=== PATIENT | female | born 1985 | race Caucasian/White ===

== ENCOUNTER 2020-04-30 16:04 | Emergency (ER) | payer SELFPAY ==
[2020-04-30 16:29] VITALS: BP 162/108; PULSE 81; RESP 16; TEMP 37; O2SAT 99; BMI 36.3
[2020-04-30 16:57] LABS: Basophils % 0.4 %; Eosinophils % 0.4 %; Hematocrit 47.8 % (37.0-47.0); Hemoglobin 15.3 g/dL (11.5-15.3); Lymphocytes # 1.9 10^3/uL (0.8-4.8); Lymphocytes % 16.8 %; Mean Corpuscular Hemoglobin 26.5 pg (28.0-34.0); Mean Corpuscular Volume 82.7 fL (81-99); Mean Platelet Volume 9.2 fL (7.4-10.4); Monocytes # 0.6 10^3/uL (0.2-0.9); Monocytes % 5.2 %; Neutrophils % 76.8 %; Nucleated Red Blood Cells % 0 %; Platelet Count 363 10^3/cmm (130-400); Red Blood Count 5.78 10^6/uL (4.1-5.3); Red Cell Distribution Width 13.7 % (12.1-15.1); White Blood Count 11.1 10^3/uL (4.0-10.0)
[2020-04-30 17:19] LABS: Alanine Aminotransferase 14 U/L (0-33); Albumin Level 4.5 g/dL (3.5-5.2); Alkaline Phosphatase 78 IU/L (35-105); Anion Gap 14.7 (5-19); Aspartate Amino Transferase 14 U/L (0-32); Blood Urea Nitrogen 9 mg/dL (6-20); Calcium 9.8 mg/dL (8.5-10.5); Carbon Dioxide 27 mmol/L (22-29); Chloride 99 mmol/L (98-107); Creatinine Clr Calc Pharmacy 148.8139; Globulin 3.3 g/dL (1.3-4.6); Glomerular Filtration Rate 82.1 mL/min (90-130); Glucose 98 mg/dL (65-115); Osmolality Calculated 283 mOsm/kg (285-295); Potassium 3.7 mmol/L (3.5-5.1); Sodium 137 mmol/L (136-145); Total Bilirubin 0.6 mg/dL (0.15-1.2); Total Protein 7.8 g/dL (6.6-8.7)
[2020-04-30 17:35] LABS: HCG, Serum Qual Negative (Negative)
[2020-04-30 18:03] LABS: Add Urine Microscopic? YES; Bilirubin Urine Neg (Negative); Blood Urine 3+ (Negative); Glucose Urine UA Norm (Normal); Ketones Urine Negative (Negative); Leukocyte Esterase Urine Negative (Negative); Nitrate Urine Negative (Negative); Protein Urine Neg (Negative); Specific Gravity, Urine 1.005 (1.005-1.030); Urine Appearance Clear (CLEAR); Urine Color Other (Yellow); Urobilinogen Urine Norm (Negative); pH Urine 7 (5-7)
[2020-04-30 18:22] LABS: RBC Urine 50-80 /hpf (0-2)
[2020-04-30 18:24] LABS: Add Urine Culture? Yes; Bacteria Urine 2+ /hpf
--- NOTE | 2020-04-30 18:30 | USR_ITS ---
NOTE: Report was unsigned for reason: Order was edited. Original Signature date and time was: 04/30/20 @2031 PROCEDURE INFORMATION: Exam: US Pelvis Complete, Transabdominal and US Pelvis, Transvaginal Exam date and time: 04/30/2020 6:30 PM Age: 34 years old Clinical indication: Other: Bleeding; Prior surgery; Surgery type: D & c; Additional info: Pain, bleeding, irregular periods TECHNIQUE: Imaging protocol: Real-time transabdominal and transvaginal pelvic ultrasound (complete) with image documentation. Transvaginal imaging was used for better evaluation of the endometrium and adnexa. COMPARISON: No relevant prior studies available. FINDINGS: Uterus/cervix: The uterus measures 11.7 x 6.0 x 8.4 cm. Endometrial thickness is 15 mm. The myometrium is inhomogenous with a possible 3.2 cm anterior uterine fibroid. Multiple nabothian cysts in the cervix. Right adnexa: The right ovary was not definitely visualized. Left adnexa: The left ovary measures 3.5 x 2.4 x 2.9 cm with normal Doppler flow and follicles. Intraperitoneal space: No free fluid. Bladder: Normal. [facility] US/US pelvic complete* [id number] IMPRESSION: 1. Endometrial thickness of 15 mm is considered slightly thickened. 2. Nonvisualized right ovary.
[2020-04-30] MEDS: ibuprofen 600 mg Tablet PO (18:38)
[2020-04-30 18:42] VITALS: BP 156/98; PULSE 76; RESP 20; O2SAT 99
--- NOTE | 2020-04-30 19:08 | ED_ITS ---
HPI - Abdominal Pain General: Chief Complaint: Abdominal Pain Stated Complaint: VAGINAL BLEEDING Time Seen by Provider: 04/30/20 18:10 History of Present Illness: HPI narrative: Patient presents with abdominal pain. She is a healthy 34-year-old with a history of endometriosis. She was treated about 10 years ago with surgery and had excellent results but the doctor told her that she should expect to have endometriosis recur within about 5 years. She said she is really done well up until this past year she started having very irregular periods. Her last period was in December. She started bleeding 2 days ago and has significant burning pain throughout her whole abdomen. She is worse on the right side. She has been having very heavy vaginal bleeding as well. She said since her periods have been irregular this is typical for her to have super heavy bleeding. The pain is worse than it has been in the past. She does not have an GROUND SUPPORT AGENT doctor currently. She has had her gallbladder removed and had a . She still has her appendix. MD elicited complaint: abdominal pain and flank pain Onset (ago): day(s) (2) Pain Consistency: constant Location: Diffuse Severity: severe Quality: burning Radiation: none Migration to: no migration Exacerbating factors: nothing Relieving factors: nothing and other (Midol helped a little bit.) Associated Symptoms: Denies chills, fever(s), nausea and vomiting Related Data: Date of Last Menstrual Period: 04/30/20 Review of Systems General: Reports: 10 or more systems reviewed and unremarkable except in HPI and below Const: Denies: fever(s), chills, fatigue or malaise Eyes: Denies: change in vision ENMT: Denies: odynophagia Card: Denies: chest pain or swelling of feet/ankles Resp: Denies: dyspnea, productive cough or non-productive cough GI: Denies: abdominal pain, nausea or vomiting : Reports: flank pain, difficulty voiding, vaginal bleeding and dysmenorrhea Musc: Denies: neck pain or back pain Skin/Breast: Denies: rash Neuro: Denies: headache(s), numbness in extremities or weakness in extremities Jin/Lymph: Denies: easy bruising or easy bleeding [facility] Female Reproductive History: Date of last menstrual period: 04/30/20 Physical Exam Const: COMMON NORMALS: no acute distress, patient oriented x3, no limitations and alert GENERAL APPEARANCE: cooperative and comfortable HENMT: HEAD & SCALP: normal to inspection FACE & SINUS: normal facial exam Eye: GENERAL EYE: appearance normal, both eyes and all related structures Neck/C-Spine: COMMON NORMALS: supple, no meningeal signs and no JVD Chest: COMMONS NORMALS: normal inspection of the chest Resp: COMMON NORMALS: normal respiratory effort, No use of accessory muscles and clear to auscultation bilaterally AUSCULTATION: clear to auscultation bilaterally Cardio: COMMON NORMALS: no JVD, regular rate, regular rhythm and No murmurs present (Cardio) RATE: regular rate RHYTHM: regular rhythm GI: COMMON NORMALS: Normal to inspection, nondistended, normoactive bowel sounds present and Soft to palpation INSPECTION: Yes normal to inspection AUSCULTATION: Yes normoactive bowel sounds PALPATION: Yes Soft to palpation and Yes Tenderness to palpation present (GI) Back/Pelvis: COMMON NORMALS: thoracic and lumbar spine normal to inspection Extremity: COMMON NORMALS: normal to inspection Neuro: COMMON NORMALS: patient oriented x3, moves all extremities, no focal motor deficits and no sensory deficits noted SENSORIUM/ORIENTATION: Yes alert MENINGEAL SIGNS: Yes no meningeal signs Psych: COMMON NORMALS: mental status grossly normal, cooperative and normal affect Skin: COMMON NORMALS: no rashes or lesions noted and turgor normal GENERAL SKIN EXAM: no rashes or lesions noted and turgor normal Course ED course: Ultrasound was fairly unremarkable except for a small fibroid. Blood counts are fine. Vital signs are fine. I have set her up to follow-up with GROUND SUPPORT AGENT for further management of her symptoms. Vital Signs: Vital signs: Vital Signs Temperature 98.6 F 04/30/20 16:29 Pulse Rate 57 L 04/30/20 21:19 Respiratory Rate 18 04/30/20 21:19 Blood Pressure 156/98 04/30/20 18:42 Pulse Oximetry 98 04/30/20 21:19 MDM - Abdominal Pain Lab Data: Labs: Lab Results 04/30/20 04/30/20 04/30/20 Range/Units 16:36 16:50 16:50 WBC 11.1 H (4.0-10.0) 10^3/ uL RBC 5.78 H (4.1-5.3) 10^6/u L Hgb 15.3 (11.5-15.3) g/dL Hct 47.8 H (37.0-47.0) % MCV 82.7 (81-99) fL MCH 26.5 L (28.0-34.0) pg MCHC 32.0 (30.0-36.0) g/dL RDW 13.7 (12.1-15.1) % Plt Count 363 (130-400) 10^3/c mm MPV 9.2 (7.4-10.4) fL Neut % (Auto) 76.8 % Lymph % (Auto) 16.8 % [place] % (Auto) 5.2 % Eos % (Auto) 0.4 % Baso % (Auto) 0.4 % Neut # (Auto) 8.50 H (1.8-7.7) 10^3/u L Lymph # (Auto) 1.9 (0.8-4.8) 10^3/u L [place] # (Auto) 0.6 (0.2-0.9) 10^3/u L Eos # (Auto) 0.0 (0.0-0.8) 10^3/u L Baso # (Auto) 0.0 (0.0-0.1) 10^3/u L Nucleated RBC % (a uto) 0 % Nucleated RBCs # 0.0 /100WBC Sodium 137 (136-145) mmol/L Potassium 3.7 (3.5-5.1) mmol/L Chloride 99 (98-107) mmol/L Carbon Dioxide 27 (22-29) mmol/L Anion Gap 14.7 (5-19) BUN 9 (6-20) mg/dL Creatinine 0.8 (0.5-0.9) mg/dL GFR Calculation 82.1 L (90-130) mL/min Glucose 98 (65-115) mg/dL Calculated Osmolal ity 283 L (285-295) mOsm/k g Calcium 9.8 (8.5-10.5) mg/dL Total Bilirubin 0.6 (0.15-1.2) mg/dL AST 14 (0-32) U/L ALT 14 (0-33) U/L Alkaline Phosphata se 78 (35-105) IU/L Total Protein 7.8 (6.6-8.7) g/dL Albumin 4.5 (3.5-5.2) g/dL Globulin 3.3 (1.3-4.6) g/dL HCG, Qual (Negative) Urine Color Other (Yellow) Urine Appearance Clear (CLEAR) Urine pH 7 (5-7) Ur Specific Gravit y 1.005 (1.005-1.030) Urine Protein Neg (Negative) Urine Glucose (UA) Norm (Normal) Urine Ketones Negative (Negative) Urine Blood 3+ H (Negative) Urine Nitrate Negative (Negative) Urine Bilirubin Neg (Negative) Urine Urobilinogen Norm (Negative) mg/dL Ur Leukocyte Lo ase Negative (Negative) Urine RBC 50-80 H (0-2) /hpf Urine WBC 5-10 H (0-5) /hpf Ur Squamous Epith Cells 5-10 H (0-5) /hpf Amorphous Sediment Not Reportable Urine Bacteria 2+ H (NONE) /hpf Blood Type Rho(D) Type Antibody Screen 04/30/20 04/30/20 Range/Units 16:50 16:50 WBC (4.0-10.0) 10^3/ uL RBC (4.1-5.3) 10^6/u L Hgb (11.5-15.3) g/dL Hct (37.0-47.0) % MCV (81-99) fL MCH (28.0-34.0) pg MCHC (30.0-36.0) g/dL RDW (12.1-15.1) % Plt Count (130-400) 10^3/c mm MPV (7.4-10.4) fL Neut % (Auto) % Lymph % (Auto) % [place] % (Auto) % Eos % (Auto) % Baso % (Auto) % Neut # (Auto) (1.8-7.7) 10^3/u L Lymph # (Auto) (0.8-4.8) 10^3/u L [place] # (Auto) (0.2-0.9) 10^3/u L Eos # (Auto) (0.0-0.8) 10^3/u L Baso # (Auto) (0.0-0.1) 10^3/u L Nucleated RBC % (a uto) % Nucleated RBCs # /100WBC Sodium (136-145) mmol/L Potassium (3.5-5.1) mmol/L Chloride (98-107) mmol/L Carbon Dioxide (22-29) mmol/L Anion Gap (5-19) BUN (6-20) mg/dL Creatinine (0.5-0.9) mg/dL GFR Calculation (90-130) mL/min Glucose (65-115) mg/dL Calculated Osmolal ity (285-295) mOsm/k g Calcium (8.5-10.5) mg/dL Total Bilirubin (0.15-1.2) mg/dL AST (0-32) U/L ALT (0-33) U/L Alkaline Phosphata se (35-105) IU/L Total Protein (6.6-8.7) g/dL Albumin (3.5-5.2) g/dL Globulin (1.3-4.6) g/dL HCG, Qual Negative (Negative) Urine Color (Yellow) Urine Appearance (CLEAR) Urine pH (5-7) Ur Specific Gravit y (1.005-1.030) Urine Protein (Negative) Urine Glucose (UA) (Normal) Urine Ketones (Negative) Urine Blood (Negative) Urine Nitrate (Negative) Urine Bilirubin (Negative) Urine Urobilinogen (Negative) mg/dL Ur Leukocyte Lo ase (Negative) Urine RBC (0-2) /hpf Urine WBC (0-5) /hpf Ur Squamous Epith Cells (0-5) /hpf Amorphous Sediment Urine Bacteria (NONE) /hpf Blood Type O Negative Rho(D) Type Negative Antibody Screen Negative Discharge Plan Discharge Patient Disposition: Home Clinical Impression: Dysmenorrhea Fibroid uterus Qualifiers: Uterine leiomyoma location: unspecified location Qualified Code(s): D25.9 - Leiomyoma of uterus, unspecified Condition: Stable Prescriptions: New tramadol 50 mg tablet 50 mg PO Q6H PRN (Reason: pain) Qty: 10 RF: 0 No Action Multiple Vitamin, Womens Tablet 1 tab PO DAILY RF: 0 Discharge Orders: Discharge Order (Routine); Ordered 04/30/20 Ordered By: Christa Alberto Referrals: Agnieszka Kilgore, MANAGER COSMETIC-C [Family Provider] - Charles Pope MD [Physician] - 7-10 days Discharge Diet: Usual diet Discharge Activity: Resume usual activity Patient Instructions: Abdominal Pain (ED) Activity Restrictions/Additional Instructions: Return to the emergency department if new or worse symptoms including increased pain, bleeding, fever. Discharge Date/Time: 04/30/20 21:23 Coding Level of Care Code ED Electronic Publications Specialist for Ryan Fwchristophe Exam Comprehensive
--- NOTE | 2020-04-30 19:16 | PC.NURSE ---
received report from quinton francois assumed care.
[2020-04-30 21:19] VITALS: PULSE 57; RESP 18; O2SAT 98
== END 2020-04-30 21:23 | disposition home or self-care (01) ==
PROVIDERS: Nurse Practitioner Family; Emergency Provider Emergency Medicine; Family Provider Nurse Practitioner
DX: D25.9 Leiomyoma of uterus, unspecified (principal); N94.6 Dysmenorrhea, unspecified
CPT/HCPCS: 12345; 36415; 76830; 76856; 80053; 81001; 84703; 85025; 86850; 86900; 87086; 99282

== ENCOUNTER 2020-10-16 21:44 | Emergency (ER) | payer BC, SELFPAY ==
[2020-10-16 21:47] VITALS: BP 171/111; PULSE 87; RESP 14; TEMP 37.1; O2SAT 98; BMI 37.5
--- NOTE | 2020-10-16 21:53 | ED_ITS ---
HPI - Ear Problem General: Chief complaint: Ear Stated complaint: L EAR PAIN Time Seen by Provider: 10/16/20 21:45 Source: patient Mode of arrival: ambulatory Limitations: no limitations History of Present Illness: HPI Narrative: 35-year-old female patient presents to the emergency department with 1 day onset of left ear pain. She reports pain is so severe tonight she can hardly stand it. She reports swelling to the left ear, denies trauma, she does report hearing loss. She denies fever chills, nausea vomiting. MD Complaint: ear pain and decreased hearing Location: left ear Duration: constant Severity: moderate Relieving factors: other (Tylenol) Exacerbating factors: chewing Discharge from ear: no Associated symptoms: Reports ear or mastoid pain and external ear pain; Denies fever(s), headache(s) or neck pain Review of Systems General: Reports: 10 or more systems reviewed and unremarkable except in HPI and below Const: Denies: fever(s), chills or diaphoresis Eyes: Denies: blurry vision or eye redness ENMT: Reports: ear or mastoid pain and change in hearing; Denies: throat pain, dental pain, disequilibrium, nasal discharge, nasal congestion or post nasal drip Card: Denies: chest pain, palpitations or irregular heart rhythm Resp: Denies: dyspnea, productive cough, non-productive cough or wheezing GI: Denies: abdominal pain, nausea or vomiting : Denies: difficulty voiding or dysuria Musc: Denies: neck pain, back pain, joint pain or joint warmth Skin/Breast: Denies: rash or pruritus Neuro: Denies: headache(s), weakness in extremities or behavioral changes Psych: Denies: anxiety or depression Jin/Lymph: Denies: easy bruising PFSH ED PFSH: Medical History (Updated 10/16/20 @ 22:10 by DYLLAN Rogers) Endometriosis Diagnosed in 2009 by laparoscopy for pelvic pain by Dr. Chamberlain-patient was noted to have a right ovarian endometrioma at this time. No pertinent past medical history Denies diabetes, asthma, seizures, hypertension, DVT/PE PCP: None Surgical History S/P laparoscopic cholecystectomy Performed when she was 17 years old Status post delivery Performed in 2011 [place] nonreassuring heart [place] [facility] [place] post conization of cervix Patient had a LEEP procedure for abnormal Pap smear by Dr. Chamberlain --paper chart has been requested. Patient does not remember any details of this. Status post laparoscopy 01/24/2010---laparoscopic right ovarian cystectomy and removal of fallopian tube cyst on the left side [place] [facility] [place] Surgery was performed for pelvic pain and at the time of surgery patient was noted to have right ovarian endometrioma with minimal adhesions. No other areas of endometriosis identified. Status post tonsillectomy and adenoidectomy At the age of 19 Status post tubal ligation 2011--per[place] at time of [place] [facility] [place] Family History Family/Other Breast cancer maternal aunt, diagnosed in her late 30s or early 40s Denies family history of Colon cancer Diabetes Heart disease Hyperlipidemia Hypertension Thyroid condition Stroke Female Reproductive History: Date of last menstrual period: 04/30/20 Physical Exam Const: COMMON NORMALS: no acute distress, patient oriented x3, healthy appearing and alert GENERAL APPEARANCE: cooperative, comfortable and well hydrated HENMT: COMMON NORMALS: normocephalic, atraumatic, external ears normal, TM's normal bilaterally, Normal external nose present and moist oral mucous membranes HEAD & SCALP: normal to inspection, normocephalic and atraumatic FACE & SINUS: normal facial exam and face symmetric NOSE: Normal external nose present and No nasal polyps present EXTERNAL EAR: Yes external ears normal, Yes mastoids normal and Yes no periauricular adenopathy EXTERNAL AUDITORY CANAL: Abnormal EAC present EAC laterality: left Details: edema and EAC tenderness TYMPANIC MEMBRANE: TM's normal bilaterally MOUTH: Normal oral and palatal mucosa present, lip normal and tongue normal THROAT: posterior oropharynx normal and uvula midline Eye: COMMON NORMALS: Equal, round and reactive pupils present and EOMs intact bilaterally GENERAL EYE: appearance normal, both eyes and all related structures PUPIL: Yes Equal, round and reactive pupils present Neck/C-Spine: COMMON NORMALS: full ROM and no lymphadenopathy GENERAL: Yes normal visual inspection and Yes trachea midline CERVICAL SPINE: Yes cervical ROM normal Lymph: LYMPHATIC: no lymphadenopathy noted Chest: COMMONS NORMALS: normal inspection of the chest and normal palpation of entire chest wall Resp: COMMON NORMALS: normal respiratory effort, No retractions, No use of accessory muscles and clear to auscultation bilaterally EFFORT & INSPECTION: Yes able to speak in complete sentences AUSCULTATION: clear to auscultation bilaterally Cardio: COMMON NORMALS: regular rate, regular rhythm, S1 normal heart sound present, S2 normal heart sound present and Peripheral pulses 2+ throughout RATE: regular rate RHYTHM: regular rhythm HEART SOUNDS: S1 normal heart sound present and S2 normal heart sound present PERIPHERAL PULSES: Peripheral pulses 2+ throughout GI: COMMON NORMALS: Normal to inspection, nondistended, normoactive bowel sounds present, Soft to palpation and non-tender INSPECTION: Yes normal to inspection PALPATION: Yes Soft to palpation : COMMON NORMALS: Yes no CVA tenderness BLADDER/KIDNEY EXAM: Yes no CVA tenderness Back/Pelvis: COMMON NORMALS: no CVA tenderness and thoracic and lumbar spine normal to inspection Extremity: COMMON NORMALS: normal to inspection and capillary refill normal Neuro: COMMON NORMALS: patient oriented x3 and no focal motor deficits S ENSORIUM/ORIENTATION: Yes alert Psych: COMMON NORMALS: mental status grossly normal, Normal thought process pr esent and cooperative ACTIVITY/MOTOR BEHAVIOR: Yes appropriate eye contact THOUGHT PROCESS: Normal thought process present Skin: COMMON NORMALS: no rashes or lesions noted and turgor normal GENERAL SKIN EXAM: no rashes or lesions noted and turgor normal Course Vital Signs: Vital signs: Vital Signs Temperature 98.7 F 10/16/20 21:47 Pulse Rate 81 10/16/20 22:33 Respiratory Rate 17 10/16/20 22:33 Blood Pressure 139/96 10/16/20 22:33 Pulse Oximetry 100 10/16/20 22:33 Discharge Plan Discharge Patient Disposition: Home Clinical Impression: Otalgia of left ear Otitis externa Qualifiers: Otitis externa type: unspecified type Chronicity: acute Laterality: left Qualified Code(s): H60.502 - Unspecified acute noninfective otitis externa, left ear Condition: Stable Prescriptions: New IBU 600 mg tablet 600 mg PO TID PRN (Reason: pain) Qty: 20 RF: 0 No Action Multiple Vitamin, Womens Tablet 1 tab PO DAILY RF: 0 tramadol 50 mg tablet 50 mg PO Q6H PRN (Reason: pain) Qty: 10 RF: 0 Discharge Orders: Discharge ED (Routine); Ordered 10/16/20 Ordered By: Gladys Leach Referrals: Agnieszka Kilgore, BELT BACK OPERATOR-C [Primary Care Provider] - Discharge Diet: Usual diet Discharge Activity: Resume usual activity Patient Instructions: Otitis Externa (ED), Earache (ED), Opioid Safety Activity Restrictions/Additional Instructions: Warm moist compresses to the left ear several times daily as needed for pain Continue Tylenol as needed for pain, you can take 2 extra strength Tylenol 3 times daily, do not exceed this dose Take ibuprofen as prescribed, take with food to avoid stomach upset Continue with eardrops as prescribed, 4 drops to the left ear 4 times daily, lay on right side 120 seconds to ensure instillation absorbs into the skin Follow-up with your primary care in 2 to 3 days if not improved or return to the emergency room if worsening symptoms such as fever or other concerning symptoms. Stand Alone Forms: Work/School Release Coding Level of Care Code ED Orientor for Ryan Fwd Exam Comprehensive
[2020-10-16] MEDS: ibuprofen 600 mg Tablet PO (22:02)
[2020-10-16] MEDS: HYDROcodone-acetaminophen 5-325 mg Tablet 1 TAB PO (22:12)
[2020-10-16 22:33] VITALS: BP 139/96; PULSE 81; RESP 17; O2SAT 100
== END 2020-10-16 22:39 | disposition home or self-care (01) ==
PROVIDERS: Emergency Provider Nurse Practitioner Family; PCP Nurse Practitioner
DX: H60.502 Unspecified acute noninfective otitis externa, left ear (principal)
CPT/HCPCS: 99283

== ENCOUNTER 2022-10-08 03:13 | Emergency (ER) | payer SELFPAY ==
[2022-10-08 03:22] VITALS: BP 175/116; PULSE 83; RESP 20; TEMP 36.4; O2SAT 98; BMI 40.2
--- NOTE | 2022-10-08 03:25 | W.ED.ABDPA2 ---
HPI - Abdominal Pain General: Chief Complaint: Abdominal Pain Stated Complaint: abdomen pain Time Seen by Provider: 10/08/22 03:20 Source: patient Mode of arrival: ambulatory Limitations: no limitations History of Present Illness: 37-year-old female states has been having abdominal pain over the last day states she is got pain all over she states has been a cramping pain with nausea and some slight diarrhea. She states that she cannot localize the pain anywhere but it is severe in nature she rates it an 8 out of 10 she denies any chest pain she denies any worsening proving factors denies any fever denies any dysuria. Associated Symptoms: Denies chills, dysuria and fever(s) Review of Systems Const: Denies: fever(s), chills, body aches or change in appetite Eyes: Denies: blurry vision or eye discomfort ENMT: Denies: throat pain or dental pain Card: Denies: chest pain Resp: Denies: dyspnea GI: Reports: abdominal pain : Denies: dysuria Musc: Denies: neck pain or back pain Skin/Breast: Denies: rash Neuro: Denies: headache(s) Psych: Denies: depression Jin/Lymph: Denies: easy bruising All/Imm: Denies: urticaria PFSH ED PFSH: Medical History BMI 40.0-44.9, adult Endometriosis Diagnosed in 2009 by laparoscopy for pelvic pain by Dr. Chamberlain-patient was noted to have a right ovarian endometrioma at this time. Essential hypertension Hyperlipidemia, mixed No pertinent past medical history Denies diabetes, asthma, seizures, hypertension, DVT/PE PCP: None Surgical History S/P laparoscopic cholecystectomy Performed when she was 17 years old Status post delivery Performed in 2011 for nonreassuring heart tracing by Dr. Donnelly at [facility] Status post conization of cervix Patient had a LEEP procedure for abnormal Pap smear by Dr. Chamberlain --paper chart has been requested. Patient does not remember any details of this. Status post laparoscopy 01/24/2010---laparoscopic right ovarian cystectomy and removal of fallopian tube cyst on the left side performed by Dr. Chamberlain at [facility]. Surgery was performed for pelvic pain and at the time of surgery patient was noted to have right ovarian endometrioma with minimal adhesions. No other areas of endometriosis identified. Status post tonsillectomy and adenoidectomy At the age of 19 Status post tubal ligation 2011--performed at time of by Dr. Donnelly at [facility] Family History Family/Other Breast cancer maternal aunt, diagnosed in her late 30s or early 40s Denies family history of Colon cancer Diabetes Heart disease Hyperlipidemia Hypertension Thyroid condition Stroke Social History Smoking and tobacco status: current every day smoker Second hand smoke exposure: No Smoking risk assessment/counseling performed?: Yes Alcohol intake: never Desire information about alcohol rehabilitation?: No Counseling given: No Desire information about substance/drug rehabilitation?: No Counseling given: No Adopted: Yes Caregiver/support person: No Lives independently: Yes Household members: spouse and children Housing: House Marital status: Number of children: 2 service: No Current occupational status: unemployed Current occupational exposures/hazards: No Pets and animals: Yes Current gender identity: Female Physical Exam Const: COMMON NORMALS: no acute distress, patient oriented x3 and healthy appearing HENMT: COMMON NORMALS: normocephalic and atraumatic HEAD & SCALP: normocephalic and atraumatic Eye: COMMON NORMALS: Equal, round and reactive pupils present and EOMs intact bilaterally PUPIL: Yes Equal, round and reactive pupils present Neck/C-Spine: COMMON NORMALS: full ROM and supple Chest: COMMONS NORMALS: normal inspection of the chest and normal palpation of entire chest wall Resp: COMMON NORMALS: normal respiratory effort, No retractions, No use of accessory muscles and clear to auscultation bilaterally AUSCULTATION: clear to auscultation bilaterally Cardio: COMMON NORMALS: regular rate, regular rhythm and No murmurs present (Cardio) RATE: regular rate RHYTHM: regular rhythm GI: COMMON NORMALS: Normal to inspection, nondistended, normoactive bowel sounds present, Soft to palpation, non-tender and no masses PALPATION: Yes Soft to palpation Extremity: COMMON NORMALS: normal to inspection and full ROM Neuro: COMMON NORMALS: patient oriented x3, moves all extremities and no focal motor deficits Psych: COMMON NORMALS: mental status grossly normal, Normal thought process present and cooperative THOUGHT PROCESS: Normal thought process present Skin: COMMON NORMALS: no rashes or lesions noted and no wounds GENERAL SKIN EXAM: no rashes or lesions noted Course Vital Signs: Vital signs: Vital Signs Temperature 97.6 F 10/08/22 03:22 Pulse Rate 72 10/08/22 04:19 Respiratory Rate 18 10/08/22 04:19 Blood Pressure 144/81 10/08/22 04:19 Pulse Oximetry 98 10/08/22 04:20 Oxygen Delivery Me thod 10/08/22 04:20 MDM - Abdominal Pain Medical Decision Making Patient presents here with abdominal pain she does have a history of ovarian cyst she does have an ovarian cyst here no signs of torsion her pain is improved lab work is normal she is stable for discharge we will prescribe her pain meds she is to follow-up with her PCP in 3 to 5 days return if worsening she understands and agrees to plan. Lab Data 10/08/22 03:20 10/08/22 03:20 Labs/Radiology: Radiology Impressions Abdomen/Pelvis CT 10/08/22 03:37 IMPRESSION: 1. Hypoattenuation cystic mass seen within the left ovary measuring up to 2.8 cm compatible with a benign or functional ovarian cyst. A 2.4 cm hypoattenuation cystic mass seen within the right ovary exhibiting mild peripheral enhancement compatible with a hemorrhagic cyst. No further workup is needed. 2. Multiple hypoattenuation cystic masses are seen within the cervix compatible with multiple nabothian cysts. This finding correlates with the sonographic findings dated 04/30/2020. 3. Normal appendix 4. No evidence for ureteral obstruction Laboratory Results WBC 11.8 10^3/uL (4.0-10.0) H 10/08/22 03:20 RBC 5.83 10^6/uL (4.1-5.3) H 10/08/22 03:20 Hgb 15.2 g/dL (11.5-15.3) 10/08/22 03:20 Hct 48.9 % (37.0-47.0) H 10/08/22 03:20 MCV 83.9 fl (81-99) 10/08/22 03:20 MCH 26.1 pg (28.0-34.0) L 10/08/22 03:20 MCHC 31.1 g/dL (30.0-36.0) 10/08/22 03:20 RDW 13.3 % (12.1-15.1) 10/08/22 03:20 Plt Count 405 10^3/cmm (130-400) H 10/08/22 03:20 MPV 8.9 fL (7.4-10.4) 10/08/22 03:20 Neut % (Auto) 69.7 % 10/08/22 03:20 Lymph % (Auto) 22.2 % 10/08/22 03:20 [place] % (Auto) 6.0 % 10/08/22 03:20 Eos % (Auto) 0.8 % 10/08/22 03:20 Baso % (Auto) 0.6 % 10/08/22 03:20 Neut # (Auto) 8.23 10^3/uL (1.8-7.7) H 10/08/22 03:20 Lymph # (Auto) 2.6 10^3/uL (0.8-4.8) 10/08/22 03:20 [place] # (Auto) 0.7 10^3/uL (0.2-0.9) 10/08/22 03:20 Eos # (Auto) 0.1 10^3/uL (0.0-0.8) 10/08/22 03:20 Baso # (Auto) 0.1 10^3/uL (0.0-0.1) 10/08/22 03:20 Nucleated RBC % (auto) 0 % 10/08/22 03:20 Nucleated RBCs # 0.0 /100WBC 10/08/22 03:20 Sodium 138 mmol/L (136-145) 10/08/22 03:20 Potassium 3.9 mmol/L (3.5-5.1) 10/08/22 03:20 Chloride 101 mmol/L (98-107) 10/08/22 03:20 Carbon Dioxide 26 mmol/L (22-29) 10/08/22 03:20 Anion Gap 14.9 (5-19) 10/08/22 03:20 BUN 11 mg/dL (6-20) 10/08/22 03:20 Creatinine 0.8 mg/dL (0.5-0.9) 10/08/22 03:20 GFR Calculation 80.7 mL/min (90-130) L 10/08/22 03:20 Glucose 106 mg/dL (65-115) 10/08/22 03:20 Calculated Osmolality 286 mOsm/kg (285-295) 10/08/22 03:20 Calcium 9.7 mg/dL (8.5-10.5) 10/08/22 03:20 Total Bilirubin 0.4 mg/dL (0.15-1.2) 10/08/22 03:20 AST 17 U/L (0-32) 10/08/22 03:20 ALT 16 U/L (0-33) 10/08/22 03:20 Alkaline Phosphatase 92 U/L (35-105) 10/08/22 03:20 Total Protein 7.3 g/dL (6.6-8.7) 10/08/22 03:20 Albumin 3.8 g/dL (3.5-5.2) 10/08/22 03:20 Globulin 3.5 g/dL (1.3-4.6) 10/08/22 03:20 Lipase 39 U/L (13-60) 10/08/22 03:20 HCG, Qual Negative (Negative) 10/08/22 03:20 Urine Color Yellow (Yellow) 10/08/22 04:46 Urine Appearance Clear (CLEAR) 10/08/22 04:46 Urine pH 5 (5-7) 10/08/22 04:46 Ur Specific [place] 1.020 (1.005-1.030) 10/08/22 04:46 Urine Protein Trace (Negative) 10/08/22 04:46 Urine Glucose (UA) Norm (Normal) 10/08/22 04:46 Urine Ketones Negative (Negative) 10/08/22 04:46 Urine Blood 2+ (Negative) H 10/08/22 04:46 Urine Nitrate Negative (Negative) 10/08/22 04:46 Urine Bilirubin Neg (Negative) 10/08/22 04:46 Urine Urobilinogen Norm mg/dL (Negative) 10/08/22 04:46 Ur Leukocyte Esterase 1+ (Negative) H 10/08/22 04:46 Urine RBC 0-4 /hpf (0-2) H 10/08/22 04:46 Urine WBC 0-4 /hpf (0-5) H 10/08/22 04:46 Ur Squamous Epith Cells 0-4 /hpf (0-5) H 10/08/22 04:46 Ur Transition Epith Cell 0-4 /hpf 10/08/22 04:46 Amorphous Sediment Not Reportable 10/08/22 04:46 Urine Bacteria 1+ /hpf (NONE) H 10/08/22 04:46 Discharge Plan Discharge Patient Disposition: Home Clinical Impression: Abdominal pain Condition: Stable Prescriptions: New hydrocodone-acetaminophen 5-325 mg tablet 1 tab PO Q6H PRN (Reason: pain) Qty: 14 0RF ondansetron 4 mg tablet,disintegrating 4 mg PO Q6H PRN (Reason: nausea and vomiting) Qty: 14 0RF No Action Metamucil 3.4 gram/5.4 gram powder 1 tbsp PO BID Qty: 660 0RF Rx Instructions: mix into at least 8 oz of water or juice before administering lisinopril 40 mg tablet 40 mg PO DAILY Qty: 30 5RF atorvastatin 20 mg tablet 20 mg PO DAILY Qty: 30 5RF Multiple Vitamin, Womens Tablet 1 tab PO DAILY IBU 600 mg tablet 600 mg PO TID PRN (Reason: pain) Qty: 20 0RF Rx Instructions: take 1 PO TID PRN pain - take with food to avoid stomach upset Discharge Orders: Discharge ED (Routine); Ordered 10/08/22 Ordered By: Rosemarie Washington Referrals: Melanie Beth FNP-C [Primary Care Provider] - 1-3 days Discharge Diet: Advance as tolerated Discharge Activity: Resume usual activity Patient Instructions: Abdominal Pain (ED), Opioid Safety Coding Level of Care Code ED Warehouse Stocker for Ryan Drummond
[2022-10-08 03:27] LABS: Basophils # 0.1 10^3/uL (0.0-0.1); Basophils % 0.6 %; Eosinophils # 0.1 10^3/uL (0.0-0.8); Eosinophils % 0.8 %; Hematocrit 48.9 % (37.0-47.0); Hemoglobin 15.2 g/dL (11.5-15.3); Lymphocytes # 2.6 10^3/uL (0.8-4.8); Lymphocytes % 22.2 %; Mean Corpuscular HGB Conc 31.1 g/dL (30.0-36.0); Mean Corpuscular Hemoglobin 26.1 pg (28.0-34.0); Mean Corpuscular Volume 83.9 fl (81-99); Mean Platelet Volume 8.9 fL (7.4-10.4); Monocytes # 0.7 10^3/uL (0.2-0.9); Neutrophils # 8.23 10^3/uL (1.8-7.7); Neutrophils % 69.7 %; Nucleated Red Blood Cells % 0 %; Platelet Count 405 10^3/cmm (130-400); Red Blood Count 5.83 10^6/uL (4.1-5.3); Red Cell Distribution Width 13.3 % (12.1-15.1); White Blood Count 11.8 10^3/uL (4.0-10.0)
[2022-10-08] MEDS: sodium chloride 0.9% 1,000 ML 999 ML IV (03:28)
[2022-10-08] MEDS: ondansetron 2 mg/ML SDV 2 mL 4 MG IVP (03:28)
[2022-10-08 03:29] VITALS: RESP 18; O2SAT 98
[2022-10-08] MEDS: HYDROmorphone 1 mg/mL INJ 1 mL IVP (03:29)
--- NOTE | 2022-10-08 03:37 | CTR_ITS ---
PROCEDURE INFORMATION: Exam: CT Abdomen And Pelvis With Contrast Exam date and time: 10/08/2022 3:55 AM Age: 37 years old Clinical indication: Abdominal pain; Generalized; Prior surgery; Surgery type: Gb. Leep. Csection. Tubal. Patient HX: C/O diffuse abd pain with nausea and diarrhea. TECHNIQUE: Imaging protocol: Computed tomography of the abdomen and pelvis with contrast. Radiation optimization: All CT scans at this facility use at least one of these dose optimization techniques: automated exposure control; mA and/or kV adjustment per patient size (includes targeted exams where dose is matched to clinical indication); or iterative reconstruction. Contrast material: OMNI 350; Contrast volume: 100 ml; Contrast route: INTRAVENOUS (IV); REPORTING DATA: Count of CT and Cardiac NM exams in prior 12 months: This patient has received 0 known CTs and 0 known cardiac nuclear medicine studies in the 12 months prior to the current study. COMPARISON: US pelv w/transvag [id number] 04/30/2020 7:40 PM RADIATION DOSE METRICS: Total DLP (mGy-cm): 1356.93 FINDINGS: Liver: Normal. No mass. Gallbladder and bile ducts: Status post cholecystectomy. Pancreas: Normal. No ductal dilation. Spleen: Normal. No splenomegaly. Adrenal glands: Normal. No mass. Kidneys and ureters: Normal. No hydronephrosis. Stomach and bowel: Unremarkable. No obstruction. No mucosal thickening. Appendix: The appendix is visualized and is normal in configuration. Intraperitoneal space: Unremarkable. No free air. No significant fluid collection. Vasculature: Unremarkable. No abdominal aortic aneurysm. Lymph nodes: Unremarkable. No enlarged lymph nodes. Urinary bladder: Unremarkable as visualized. Reproductive: There are multiple hypoattenuation cystic mass seen within the uterine cervix compatible with multiple nabothian cysts. This finding correlates with the sonographic findings dated 04/30/2020. There is a 2.8 x 2.8 x 2.5 cm hypoattenuation cystic mass seen associated with the left ovary compatible with a benign or functional cyst. There is a mildly irregular hypoattenuation cystic mass seen associated with the right ovary exhibiting some mild peripheral enhancement measuring 1.7 x 2.4 x 2.1 cm likely representing a benign hemorrhagic cyst. Bones/joints: Unremarkable. No acute fracture. Soft tissues: Unremarkable. CT/CT abdomen pelvis w con* [id number] IMPRESSION: 1. Hypoattenuation cystic mass seen within the left ovary measuring up to 2.8 cm compatible with a benign or functional ovarian cyst. A 2.4 cm hypoattenuation cystic mass seen within the right ovary exhibiting mild peripheral enhancement compatible with a hemorrhagic cyst. No further workup is needed. 2. Multiple hypoattenuation cystic masses are seen within the cervix compatible with multiple nabothian cysts. This finding correlates with the sonographic findings dated 04/30/2020. 3. Normal appendix 4. No evidence for ureteral obstruction
[2022-10-08 03:43] LABS: HCG, Serum Qual Negative (Negative)
[2022-10-08 03:44] LABS: Alanine Aminotransferase 16 U/L (0-33); Albumin Level 3.8 g/dL (3.5-5.2); Alkaline Phosphatase 92 U/L (35-105); Anion Gap 14.9 (5-19); Aspartate Amino Transferase 17 U/L (0-32); Blood Urea Nitrogen 11 mg/dL (6-20); Calcium 9.7 mg/dL (8.5-10.5); Carbon Dioxide 26 mmol/L (22-29); Chloride 101 mmol/L (98-107); Globulin 3.5 g/dL (1.3-4.6); Glomerular Filtration Rate 80.7 mL/min (90-130); Glucose 106 mg/dL (65-115); Lipase 39 U/L (13-60); Osmolality Calculated 286 mOsm/kg (285-295); Potassium 3.9 mmol/L (3.5-5.1); Sodium 138 mmol/L (136-145); Total Bilirubin 0.4 mg/dL (0.15-1.2); Total Protein 7.3 g/dL (6.6-8.7)
[2022-10-08] MEDS: iohexol 350 mg/mL 500 mL Btl (per mL) IV (03:58)
[2022-10-08 04:19] VITALS: BP 144/81; PULSE 72; RESP 18; O2SAT 98
[2022-10-08 04:20] VITALS: O2SAT 98
[2022-10-08 04:54] LABS: Add Urine Microscopic? YES; Bilirubin Urine Neg (Negative); Blood Urine 2+ (Negative); Glucose Urine UA Norm (Normal); Ketones Urine Negative (Negative); Leukocyte Esterase Urine 1+ (Negative); Nitrate Urine Negative (Negative); Protein Urine Trace (Negative); Urine Appearance Clear (CLEAR); Urine Color Yellow (Yellow); Urobilinogen Urine Norm (Negative); pH Urine 5 (5-7)
[2022-10-08 04:56] LABS: RBC Urine 0-4 /hpf (0-2); Squamous Epithelial Cell Urine 0-4 /hpf (0-5); Transitional Epi Cells Urine 0-4 /hpf; WBC Urine 0-4 /hpf (0-5)
[2022-10-08 04:57] LABS: Bacteria Urine 1+ /hpf
[2022-10-08 05:05] VITALS: BP 133/79; PULSE 76; RESP 16; O2SAT 95
--- NOTE | 2022-10-09 08:01 | DCPLANNER ---
Addendum entered by Velia Echevarria 10/15/22 07:12: Patient had an appointment scheduled with [facility] on 10.12.22 - patient did attend appointment. Original Note: web project manager had message to schedule a follow up appointment for patient with [facility]. web project manager sent patients information to the front office staff at [facility]. Patients information will be printed and reviewed. clinic will call patient with appointment information.
== END 2022-10-08 05:05 | disposition home or self-care (01) ==
PROVIDERS: Emergency Provider Emergency Medicine; PCP Nurse Practitioner Family
DX: R10.9 Unspecified abdominal pain (principal)
CPT/HCPCS: 74177; 80053; 81001; 83690; 84703; 85025; 96361; 96374; 96375; 99285; J1170; J2405; J7030; Q9967

== ENCOUNTER → 2022-11-10 10:01 | Outpatient (BNVA) | payer OTHER, SELFPAY | PROVIDERS: PCP Nurse Practitioner Family; Visit Provider Obstetrics & Gynecology | DX: R10.2 Pelvic and perineal pain (principal); N92.0 Excessive and frequent menstruation with regular cycle; N85.2 Hypertrophy of uterus | CPT/HCPCS: 76830 ==

== ENCOUNTER 2023-02-16 06:06 | Emergency (ER) | payer SELFPAY ==
[2023-02-16 06:09] VITALS: BMI 39.5
[2023-02-16 06:11] VITALS: BP 175/135; PULSE 87; RESP 16; TEMP 37.2; O2SAT 98
--- NOTE | 2023-02-16 06:15 | W.ED.BACK ---
HPI - Back Pain/Injury General: Chief Complaint: Back Pain/Injury Stated Complaint: Lower back pain Time Seen by Provider: 02/16/23 06:10 Source: patient Mode of arrival: ambulatory History of Present Illness: 37-year-old female presents emergency room complaining of back pain that began 4 days ago. She does remember anything she did that seem to trigger it she has not had significant back problems in the past she has pain in the low back she describes as radiating up into her right flank. She denies dysuria. No hematuria no history of renal stones. No radiation of pain into her lower extremities and no weakness in her legs. MD elicited complaint: back pain Onset (ago): day(s) (4) Timing: constant Severity: moderate Quality: sharp Location: lumbar spine Radiation: other (Right flank) Exacerbating factors: movement, sitting upright and walking Relieving factors: supine Associated symptoms: Reports syncope; Deny abdominal pain, arthralgias, chills, difficulty walking, dysuria, fatigue, fever(s), hematuria, myalgias, nausea, numbness, tingling/numbness/burning, urinary frequency, urinary urgency, vomiting or weakness Work related injury: No Review of Systems Const: Denies: fever(s), chills, fatigue or malaise Card: Reports: syncope; Denies: chest pain Resp: Denies: dyspnea, productive cough or non-productive cough GI: Denies: abdominal pain, nausea or vomiting : Reports: flank pain; Denies: dysuria, urinary frequency, urinary urgency or hematuria Musc: Reports: back pain; Denies: extremity pain Skin/Breast: Denies: rash or pruritus Neuro: Denies: difficulty walking [facility] PFSH: Medical History BMI 40.0-44.9, adult Endometriosis Diagnosed in 2009 by laparoscopy for pelvic pain by Dr. Chamberlain-patient was noted to have a right ovarian endometrioma at this time. Essential hypertension Hyperlipidemia, mixed No pertinent past medical history Denies diabetes, asthma, seizures, hypertension, DVT/PE PCP: None Surgical History S/P laparoscopic cholecystectomy Performed when she was 17 years old Status post delivery Performed in 2011 for nonreassuring heart tracing by Dr. Donnelly at [facility] Status post conization of cervix Patient had a LEEP procedure for abnormal Pap smear by Dr. Chamberlain --paper chart has been requested. Patient does not remember any details of this. Status post laparoscopy 01/24/2010---laparoscopic right ovarian cystectomy and removal of fallopian tube cyst on the left side performed by Dr. Chamberlain at [facility]. Surgery was performed for pelvic pain and at the time of surgery patient was noted to have right ovarian endometrioma with minimal adhesions. No other areas of endometriosis identified. Status post tonsillectomy and adenoidectomy At the age of 19 Status post tubal ligation 2011--performed at time of by Dr. Donnelly at [facility] Family History Family/Other Breast cancer maternal aunt, diagnosed in her late 30s or early 40s Denies family history of Colon cancer Diabetes Heart disease Hyperlipidemia Hypertension Thyroid condition Stroke Social History Substance/Drug Use: unknown Do you think of yourself as: Straight/Heterosexual Physical Exam Const: COMMON NORMALS: no acute distress GENERAL APPEARANCE: cooperative and comfortable ORIENTATION/CONSCIOUSNESS: Yes awake, Yes oriented to person, Yes oriented to place and Yes oriented to time HENMT: COMMON NORMALS: normocephalic, atraumatic and hearing grossly normal bilaterally HEAD & SCALP: normocephalic and atraumatic Resp: COMMON NORMALS: normal respiratory effort, No retractions, No use of accessory muscles and clear to auscultation bilaterally AUSCULTATION: clear to auscultation bilaterally Cardio: COMMON NORMALS: regular rate, regular rhythm and No murmurs present (Cardio) RATE: regular rate RHYTHM: regular rhythm GI: COMMON NORMALS: Soft to palpation and No hepatosplenomegaly present AUSCULTATION: Yes normoactive bowel sounds PALPATION: Yes Soft to palpation, No Tenderness to palpation present (GI), No Guarding due to palpation present (GI) and Yes No hepatosplenomegaly present Extremity: COMMON NORMALS: normal to inspection, capillary refill normal, no clubbing, cyanosis or edema, no calf tenderness and no pedal edema Neuro: SENSORIUM/ORIENTATION: Yes oriented to person, Yes oriented to place and Yes oriented to time OTHER: Straight leg raising is negative. Dorsal plantarflexion strength is 5/5 EHL 5 of 5 bilaterally. Sensation lower extremities normal. Deep tendon reflexes plus 1 out of 4 at the patellar tendon bilaterally. Skin: COMMON NORMALS: no rashes or lesions noted GENERAL SKIN EXAM: no rashes or lesions noted Course Vital Signs: Vital signs: Vital Signs Temperature 98.9 F 02/16/23 06:11 Pulse Rate 87 02/16/23 06:11 Respiratory Rate 16 02/16/23 06:11 Blood Pressure 175/135 02/16/23 06:11 Pulse Oximetry 98 02/16/23 06:11 Oxygen Delivery Me thod Room Air 02/16/23 06:11 MDM - Back Pain/Injury Medical Decision Making Few red blood cells on urine. Patient does report pain radiating up into her flank however. Prescribed a 7-day course of Bactrim also prescribed tizanidine and diclofenac follow-up with her primary care doctor. Back pain is improved with medications given in the emergency room. Medical Records I reviewed the patient's medical records. Labs I reviewed the patient's lab results. Laboratory Results Urine Color Yellow (Yellow) 02/16/23 06:25 Urine Appearance Hazy (CLEAR) A 02/16/23 06:25 Urine pH 5 (5-7) 02/16/23 06:25 Ur Specific [place] 1.020 (1.005-1.030) 02/16/23 06:25 Urine Protein Neg (Negative) 02/16/23 06:25 Urine Glucose (UA) Norm (Normal) 02/16/23 06:25 Urine Ketones Negative (Negative) 02/16/23 06:25 Urine Blood Neg (Negative) 02/16/23 06:25 Urine Nitrate Negative (Negative) 02/16/23 06:25 Urine Bilirubin Neg (Negative) 02/16/23 06:25 Urine Urobilinogen 1 mg/dL (Negative) H 02/16/23 06:25 Ur Leukocyte Esterase 1+ (Negative) H 02/16/23 06:25 Urine RBC 0-4 /hpf (0-2) H 02/16/23 06:25 Urine WBC 5-10 /hpf (0-5) H 02/16/23 06:25 Ur Squamous Epith Cells 5-10 /hpf (0-5) H 07/11/23 06:25 Amorphous Sediment Not Reportable 02/16/23 06:25 Urine Bacteria 1+ /hpf (NONE) H 02/16/23 06:25 Urine Mucus Trace /hpf 02/16/23 06:25 Discharge Plan Discharge Patient Disposition: Home Clinical Impression: Strain of lumbar region, Cystitis Condition: Stable Prescriptions: New Bactrim DS 800-160 mg tablet 1 tab PO DAILY 7 Days Qty: 14 0RF tizanidine 4 mg tablet 4 mg PO Q6H PRN (Reason: muscle spasticity) Qty: 20 0RF Rx Instructions: do not exceed 3 doses per 24 hrs diclofenac sodium 75 mg tablet,delayed release (DR/EC) 75 mg PO Q12H PRN (Reason: pain) Qty: 20 0RF Continued lisinopril 40 mg tablet 40 mg PO DAILY Qty: 15 0RF Discontinued ibuprofen [IBU] 600 mg tablet 600 mg PO TID PRN (Reason: pain) Qty: 20 0RF Rx Instructions: take 1 PO TID PRN pain - take with food to avoid stomach upset No Action atorvastatin 20 mg tablet 20 mg PO DAILY Qty: 30 5RF [id number] 3.5-10,000-1 mg/mL-unit/mL-% drops,suspension 4 drp otic (ear) TID 10 Days Qty: 10 0RF hydrocodone-acetaminophen 5-325 mg tablet 1 tab PO Q6H PRN (Reason: pain) Qty: 14 0RF ondansetron 4 mg tablet,disintegrating 4 mg PO Q6H PRN (Reason: nausea and vomiting) Qty: 14 0RF Discharge Orders: Discharge ED (Routine); Ordered 02/16/23 Ordered By: Ravi Benoit Referrals: Melanie Beth FNP-C [Primary Care Provider] - Discharge Diet: Usual diet Discharge Activity: Increase activity as tolerated Patient Instructions: Opioid Safety, Pain Management Activity Restrictions/Additional Instructions: You are seen today for back pain urine shows you may have a slight bladder infection as well. He is a tizanidine and diclofenac for your back pain there is a course of antibiotics for 1 week for your your bladder infection. We also gave you 15 days of your lisinopril recommend you follow-up with your primary care doctor during that time to get further refills. Coding Level of Care Code ED Family Intervention Specialist for Ryan Drummond
[2023-02-16] MEDS: ketorolac 30 mg/mL INJ IVP (06:21)
[2023-02-16] MEDS: tizanidine 4 mg Tablet PO (06:21)
[2023-02-16] MEDS: dexamethasone 10 mg/mL INJ IVP (06:21)
[2023-02-16 07:13] LABS: Bilirubin Urine Neg (Negative); Blood Urine Neg (Negative); Glucose Urine UA Norm (Normal); Ketones Urine Negative (Negative); Leukocyte Esterase Urine 1+ (Negative); Nitrate Urine Negative (Negative); Protein Urine Neg (Negative); Urine Appearance Hazy (CLEAR); Urine Color Yellow (Yellow); Urobilinogen Urine 1 mg/dL (Negative); pH Urine 5 (5-7)
[2023-02-16 07:14] LABS: Add Urine Culture? No; Add Urine Microscopic? YES; Bacteria Urine 1+ /hpf; Mucus Urine TRACE /hpf; RBC Urine 0-4 /hpf (0-2)
[2023-02-16 08:00] VITALS: BP 175/135; PULSE 87; RESP 16; TEMP 37.2; O2SAT 98
== END 2023-02-16 08:02 | disposition home or self-care (01) ==
PROVIDERS: Emergency Provider Family Medicine; PCP Nurse Practitioner Family
DX: S39.012A Strain of muscle, fascia and tendon of lower back, initial encounter (principal); N30.90 Cystitis, unspecified without hematuria; I10 Essential (primary) hypertension; E78.2 Mixed hyperlipidemia; X58.XXXA Exposure to other specified factors, initial encounter
CPT/HCPCS: 81001; 96374; 96375; 99284; J1100; J1885

== ENCOUNTER → 2023-02-18 11:29 | Outpatient (BNVA) | payer SELFPAY | PROVIDERS: PCP Nurse Practitioner Family; Visit Provider Nurse Practitioner Family | DX: I10 Essential (primary) hypertension (principal) | CPT/HCPCS: 80053; 80061; 84443; 85025 ==

== ENCOUNTER 2023-11-25 09:13 | Emergency (ER) | payer SELFPAY ==
[2023-11-25 09:24] VITALS: BP 155/100; PULSE 82; RESP 17; TEMP 36.7; O2SAT 97; BMI 40.5
[2023-11-25 10:29] LABS: Add Urine Microscopic? YES; Bilirubin Urine Neg (Negative); Blood Urine 3+ (Negative); Glucose Urine UA Norm (Normal); Ketones Urine Negative (Negative); Leukocyte Esterase Urine 2+ (Negative); Nitrate Urine Negative (Negative); Protein Urine Neg (Negative); Specific Gravity, Urine 1.025 (1.005-1.030); Urine Color Yellow (Yellow); Urobilinogen Urine Norm (Negative); pH Urine 5 (5-7)
[2023-11-25 10:30] LABS: Bacteria Urine 2+ /hpf; RBC Urine 25-40 /hpf (0-2); WBC Urine 80-100 /hpf (0-5)
[2023-11-25 10:31] LABS: Add Urine Culture? Yes
--- NOTE | 2023-11-25 11:29 | ED_ITS ---
HPI - Female Genitourinary General: Chief complaint: Urogenital-Female Stated complaint: burning when urinating Time Seen by Provider: 11/25/23 11:22 Source: patient Mode of arrival: ambulatory Limitations: no limitations History of Present Illness: 30-year-old female states that over the last 4 days she has been having dysuria states she has had to go more frequently and feels like she is not getting all of her urine out. States she feels like she has a UTI she had finished amoxicillin for a dental infection and thought that may treat it but states she still having the symptoms she denies any abdominal pain denies any flank pain denies any fevers Associated symptoms: Deny abdominal pain, headache(s) or nausea Review of Systems Const: Denies: fever(s), chills, body aches or change in appetite ENMT: Denies: throat pain or dental pain Card: Denies: chest pain Resp: Denies: dyspnea GI: Denies: abdominal pain, nausea, vomiting or diarrhea : Reports: difficulty voiding and dysuria; Denies: flank pain Musc: Denies: neck pain or back pain Skin/Breast: Denies: rash Neuro: Denies: headache(s) PFSH ED PFSH: Medical History Essential hypertension Hyperlipidemia, mixed BMI 40.0-44.9, adult Endometriosis Diagnosed in 2009 by laparoscopy for pelvic pain by Dr. Chamberlain-patient was noted to have a right ovarian endometrioma at this time. No pertinent past medical history Denies diabetes, asthma, seizures, hypertension, DVT/PE PCP: None Surgical History Status post conization of cervix Patient had a LEEP procedure for abnormal Pap smear by Dr. Chamberlain --paper chart has been requested. Patient does not remember any details of this. Status post laparoscopy 01/24/2010---laparoscopic right ovarian cystectomy and removal of fallopian tube cyst on the left side performed [place] Dr. Chamberlain [place] [facility] [place] Surgery was performed for pelvic pain and at the time of surgery patient was noted to have right ovarian endometrioma with minimal adhesions. No other areas of endometriosis identified. Status post tonsillectomy and adenoidectomy At the age of 19 S/P laparoscopic cholecystectomy Performed when she was 17 years old Status post tubal ligation 2011--performed at time of by Dr. Donnelly at [facility] [place] Status post delivery Performed in 2011 for nonreassuring heart tracing by Dr. Donnelly at [facility] [place] Family History Family/Other Breast cancer maternal aunt, diagnosed in her late 30s or early 40s Denies family history of Colon cancer Diabetes Heart disease Hyperlipidemia Hypertension Thyroid condition Stroke Social History Substance/Drug Use: unknown Do you think of yourself as: Straight/Heterosexual Physical Exam Const: COMMON NORMALS: no acute distress, patient oriented x3 and healthy appearing HENMT: COMMON NORMALS: normocephalic and atraumatic HEAD & SCALP: normocephalic and atraumatic Eye: COMMON NORMALS: conjunctivae normal CONJUNCTIVA: Yes conjunctivae normal Neck/C-Spine: COMMON NORMALS: full ROM and supple Chest: COMMONS NORMALS: normal inspection of the chest Resp: COMMON NORMALS: normal respiratory effort GI: COMMON NORMALS: Normal to inspection, nondistended, normoactive bowel sounds present, Soft to palpation, non-tender and no masses PALPATION: Yes Soft to palpation Extremity: COMMON NORMALS: normal to inspection and full ROM Neuro: COMMON NORMALS: patient oriented x3, moves all extremities and no focal motor deficits Psych: COMMON NORMALS: mental status grossly normal, Normal thought process present and cooperative THOUGHT PROCESS: Normal thought process present Skin: COMMON NORMALS: no rashes or lesions noted and no wounds GENERAL SKIN EXAM: no rashes or lesions noted Course Vital Signs: Vital signs: Vital Signs Temperature 98.1 F 11/25/23 09:24 Pulse Rate 82 11/25/23 09:24 Respiratory Rate 17 11/25/23 09:24 Blood Pressure 155/100 11/25/23 09:24 Pulse Oximetry 97 11/25/23 09:24 Oxygen Delivery Me thod Room Air 11/25/23 09:24 MDM - Female Medical Decision Making Patient presents here with dysuria urine does show a UTI she has no flank pain no signs of kidney stone she is not septic we will give her dose of Rocephin put her on Macrobid she is stable for discharge she is follow-up with PCP return if worsening she understands agrees to plan Medical Records I reviewed the patient's medical records. Lab Data I reviewed the patient's lab results. Laboratory Results Urine Color Yellow (Yellow) 11/25/23 09:34 Urine Appearance Sl cloudy (CLEAR) A 11/25/23 09:34 Urine pH 5 (5-7) 11/25/23 09:34 Ur Specific [place] 1.025 (1.005-1.030) 11/25/23 09:34 Urine Protein Neg (Negative) 11/25/23 09:34 Urine Glucose (UA) Norm (Normal) 11/25/23 09:34 Urine Ketones Negative (Negative) 11/25/23 09:34 Urine Blood 3+ (Negative) H 11/25/23 09:34 Urine Nitrate Negative (Negative) 11/25/23 09:34 Urine Bilirubin Neg (Negative) 11/25/23 09:34 Urine Urobilinogen Norm mg/dL (Negative) 11/25/23 09:34 Ur Leukocyte Esterase 2+ (Negative) H 11/25/23 09:34 Urine RBC 25-40 /hpf (0-2) H 11/25/23 09:34 Urine WBC 80-100 /hpf (0-5) H 11/25/23 09:34 Ur Squamous Epith Cells 5-10 /hpf (0-5) H 11/25/23 09:34 Amorphous Sediment Not Reportable 11/25/23 09:34 Urine Bacteria 2+ /hpf (NONE) H 11/25/23 09:34 No radiology studies performed this visit Discharge Plan Discharge Patient Disposition: Home Clinical Impression: Acute cystitis Condition: Stable Prescriptions: New Macrobid 100 mg capsule 100 mg PO BID 7 Days Qty: 14 0RF Rx Instructions: must administer with a meal/food No Action lisinopril 40 mg tablet 40 mg PO DAILY Qty: 30 5RF atorvastatin 20 mg tablet 20 mg PO DAILY Qty: 30 5RF oseltamivir [Tamiflu] 75 mg capsule 75 mg PO DAILY Qty: 10 0RF Rx Instructions: increase to BID dosing if symptomatic tizanidine 4 mg tablet 4 mg PO Q6H PRN (Reason: muscle spasticity) Qty: 20 0RF Rx Instructions: do not exceed 3 doses per 24 hrs Discharge Orders: Discharge ED (Routine); Ordered 11/25/23 Ordered By: Rosemarie Washington Referrals: Melanie Beth FNP-C [Primary Care Provider] - 4-7 days Discharge Diet: Advance as tolerated Discharge Activity: Resume usual activity Patient Instructions: Urinary Tract Infection in Women (ED) Coding Level of Care Code ED Materials Specialist for Ryan Drummond
[2023-11-25] MEDS: cefTRIAXone 1,000 MG in water for injection-sterile 2.1 ML 2 MG IM (11:41)
[2023-11-25 11:42] VITALS: BP 160/81; O2SAT 99
== END 2023-11-25 12:08 | disposition home or self-care (01) ==
PROVIDERS: Emergency Provider Emergency Medicine; PCP Nurse Practitioner Family
DX: N30.00 Acute cystitis without hematuria (principal); I10 Essential (primary) hypertension; E78.2 Mixed hyperlipidemia
CPT/HCPCS: 81001; 87077; 87086; 87186; 96372; 99284; J0696

== ENCOUNTER 2023-12-17 16:13 | Emergency (ER) | payer SELFPAY ==
[2023-12-17 16:19] VITALS: BP 162/111; PULSE 88; RESP 18; TEMP 36.7; O2SAT 98; BMI 40.5
--- NOTE | 2023-12-17 17:34 | ED_ITS ---
HPI - Female Genitourinary General: Chief complaint: Urogenital-Female Stated complaint: pain during urination, frequent urination Time Seen by Provider: 12/17/23 17:10 Source: patient Mode of arrival: ambulatory Limitations: no limitations History of Present Illness: Patient is a nice 38-year-old female presents to ED today with concerns of UTI. Patient states she was seen here on 11/24 and diagnosed with acute cystitis and placed on Macrobid. Her urine culture did come back positive for E. coli sensitive to Macrobid. Patient states she felt like she got relief while on the antibiotics and maybe for a few days following completion but feels like her symptoms returned. She has been treating at home with Azo and increasing fluid intake. Today she complains of dysuria, frequency, urgency and feeling like her bladder is spasming. She is not having any back or flank pain. She denies abdominal or suprapubic discomfort. She is not running fevers. No vomiting. Denies vaginal discharge or vaginal odor. She is /monogamous with her partner. MD elicited complaint: dysuria and UTI Onset (ago): day(s) Severity: moderate Vaginal discharge: none Vaginal bleeding: none Urinary symptoms: Difficulty Urinating, Dysuria, Frequency and Urgency Exacerbating factors: urination Relieving factors: other (azo) Associated symptoms: Reports no associated symptoms; Deny abdominal pain, headache(s) or nausea Sexual activity: Yes Patient : No Review of Systems Const: Denies: fever(s), chills, body aches, fatigue or malaise Card: Denies: chest pain Resp: Denies: dyspnea GI: Denies: abdominal pain, nausea, vomiting, diarrhea or change in bowel habits : Reports: difficulty voiding, dysuria, urinary frequency, urinary urgency and urinary hesitancy; Denies: flank pain or pelvic pain Musc: Denies: neck pain, back pain, extremity pain or joint pain Skin/Breast: Denies: rash Neuro: Denies: headache(s) or dizziness [facility] ED PFSH: Medical History Essential hypertension Hyperlipidemia, mixed BMI 40.0-44.9, adult Endometriosis Diagnosed in 2009 by laparoscopy for pelvic pain by Dr. Chamberlain-patient was noted to have a right ovarian endometrioma at this time. No pertinent past medical history Denies diabetes, asthma, seizures, hypertension, DVT/PE PCP: None Surgical History Status post conization of cervix Patient had a LEEP procedure for abnormal Pap smear by Dr. Chamberlain --paper chart has been requested. Patient does not remember any details of this. Status post laparoscopy 01/24/2010---laparoscopic right ovarian cystectomy and removal of fallopian tube cyst on the left side performed by Dr. Chamberlain at [facility] [place] Surgery was performed for pelvic pain and at the time of surgery patient was noted to have right ovarian endometrioma with minimal adhesions. No other areas of endometriosis identified. Status post tonsillectomy and adenoidectomy At the age of 19 S/P laparoscopic cholecystectomy Performed when she was 17 years old Status post tubal ligation 2011--performed at time of by Dr. Donnelly at [facility] [place] Status post delivery Performed in 2011 for nonreassuring heart tracing by Dr. Donnelly at [facility] [place] Family History Family/Other Breast cancer maternal aunt, diagnosed in her late 30s or early 40s Denies family history of Colon cancer Diabetes Heart disease Hyperlipidemia Hypertension Thyroid disease Stroke Social History Substance/Drug Use: unknown Do you think of yourself as: Straight/Heterosexual Physical Exam Const: COMMON NORMALS: no acute distress, patient oriented x3, no limitations, alert and well nourished GENERAL APPEARANCE: cooperative NUTRITIONAL APPEARANCE: obese morbidly obese (BMI 40.5) ORIENTATION/CONSCIOUSNESS: Yes awake, Yes oriented to person, Yes oriented to place and Yes oriented to time Resp: COMMON NORMALS: normal respiratory effort Cardio: COMMON NORMALS: regular rate and regular rhythm RATE: regular rate RHYTHM: regular rhythm GI: COMMON NORMALS: Normal to inspection, nondistended, normoactive bowel sounds present, Soft to palpation, non-tender, No hepatosplenomegaly present and no masses PALPATION: Yes Soft to palpation and Yes No hepatosplenomegaly present : COMMON NORMALS: Yes no CVA tenderness BLADDER/KIDNEY EXAM: Yes no CVA tenderness Back/Pelvis: COMMON NORMALS: no CVA tenderness and thoracic and lumbar spine normal to inspection Neuro: COMMON NORMALS: patient oriented x3 SENSORIUM/ORIENTATION: Yes alert, Yes oriented to person, Yes oriented to place and Yes oriented to time Course Vital Signs: Vital signs: Vital Signs Temperature 98.1 F 12/17/23 16:19 Pulse Rate 88 12/17/23 16:19 Respiratory Rate 18 12/17/23 16:19 Blood Pressure 162/111 12/17/23 16:19 Pulse Oximetry 98 12/17/23 16:19 Oxygen Delivery Me thod Room Air 12/17/23 16:19 MDM - Female Medical Decision Making Patient's UA highly indicative of infection with cloudy appearance, 2+ blood, positive nitrates, 2+ leuks and over 100 WBCs. She was given IM Rocephin prior to discharge and I will place her on Ciprofloxacin. Lab Data Laboratory Results HCG, Qual Negative (Negative) 12/17/23 17:36 Urine Color Yellow (Yellow) 12/17/23 17:10 Urine Appearance Cloudy (CLEAR) A 12/17/23 17:10 Urine pH 5 (5-7) 12/17/23 17:10 Ur Specific [place] 1.025 (1.005-1.030) 12/17/23 17:10 Urine Protein 1+ (Negative) H 12/17/23 17:10 Urine Glucose (UA) Norm (Normal) 12/17/23 17:10 Urine Ketones 1+ (Negative) H 12/17/23 17:10 Urine Blood 2+ (Negative) H 12/17/23 17:10 Urine Nitrate Positive (Negative) H 12/17/23 17:10 Urine Bilirubin Neg (Negative) 12/17/23 17:10 Urine Urobilinogen Norm mg/dL (Negative) 12/17/23 17:10 Ur Leukocyte Esterase 2+ (Negative) H 12/17/23 17:10 Urine RBC None /hpf (0-2) 12/17/23 17:10 Urine WBC >100 /hpf (0-5) H 12/17/23 17:10 Ur Squamous Epith Cells None /hpf (0-5) 12/17/23 17:10 Amorphous Sediment Not Reportable 12/17/23 17:10 Urine Bacteria 3+ /hpf (NONE) H 12/17/23 17:10 No radiology studies performed this visit Discharge Plan Discharge Patient Disposition: Home Clinical Impression: Urinary tract infection Qualifiers: Urinary tract infection type: acute cystitis Hematuria presence: with hematuria Qualified Code(s): N30.01 - Acute cystitis with hematuria Condition: Stable Prescriptions: New Cipro 500 mg tablet 500 mg PO Q12H Qty: 14 0RF No Action lisinopril 40 mg tablet 40 mg PO DAILY Qty: 30 5RF atorvastatin 20 mg tablet 20 mg PO DAILY Qty: 30 5RF oseltamivir [Tamiflu] 75 mg capsule 75 mg PO DAILY Qty: 10 0RF Rx Instructions: increase to BID dosing if symptomatic tizanidine 4 mg tablet 4 mg PO Q6H PRN (Reason: muscle spasticity) Qty: 20 0RF Rx Instructions: do not exceed 3 doses per 24 hrs Discharge Orders: Discharge ED (Routine); Ordered 12/17/23 Ordered By: Shefali Radford Referrals: Melanie Beth FNP-C [Primary Care Provider] - Patient Instructions: Urinary Tract Infection in Women (DC), Dysuria (ED) Activity Restrictions/Additional Instructions: We need to fill your antibiotics and start them immediately. You need to return to the emergency department at any point for severe flank pain/back pain, repetitive episodes of vomiting, inability to hold down your antibiotics, fevers greater than 100.4, generally feeling worse or unwell, or any other concerns you may have. Coding Level of Care Code ED Food Technologist for Ryan Drummond
[2023-12-17 17:48] LABS: HCG Qualitative Urine. Negative (Negative)
[2023-12-17 17:52] LABS: Glucose Urine UA Norm (Normal); Protein Urine 1+ (Negative); Specific Gravity, Urine 1.025 (1.005-1.030); Urine Appearance Cloudy (CLEAR); Urine Color Yellow (Yellow); pH Urine 5 (5-7)
[2023-12-17 17:53] LABS: Add Urine Microscopic? YES; Bilirubin Urine Neg (Negative); Blood Urine 2+ (Negative); Ketones Urine 1+ (Negative); Leukocyte Esterase Urine 2+ (Negative); Nitrate Urine Positive (Negative); Urobilinogen Urine Norm (Negative)
[2023-12-17 17:55] LABS: WBC Urine >100 /hpf (0-5)
[2023-12-17 17:56] LABS: Add Urine Culture? Yes; Bacteria Urine 3+ /hpf
[2023-12-17] MEDS: cefTRIAXone 1,000 MG in water for injection-sterile 2.1 ML 1 MG IM (18:17)
[2023-12-17 18:18] VITALS: PULSE 87; RESP 18; O2SAT 100
== END 2023-12-17 18:19 | disposition home or self-care (01) ==
PROVIDERS: Emergency Medicine; Emergency Provider Physician Assistant; PCP Nurse Practitioner Family
DX: N30.01 Acute cystitis with hematuria (principal); I10 Essential (primary) hypertension; E78.2 Mixed hyperlipidemia
CPT/HCPCS: 81001; 81025; 87077; 87086; 87186; 96372; 99284; J0696

== ENCOUNTER → 2025-03-05 10:38 | Outpatient (BNVA) | payer OTHER, SELFPAY | PROVIDERS: PCP Nurse Practitioner Family; Visit Provider Obstetrics & Gynecology | DX: N93.9 Abnormal uterine and vaginal bleeding, unspecified (principal) | CPT/HCPCS: 83036; 84146; 84443 ==

== ENCOUNTER → 2025-03-19 10:37 | Outpatient (BNVA) | payer OTHER, SELFPAY | PROVIDERS: PCP Nurse Practitioner Family; Visit Provider Obstetrics & Gynecology | DX: N85.2 Hypertrophy of uterus (principal); N83.01 Follicular cyst of right ovary | CPT/HCPCS: 76830 ==